=== PATIENT | female | born 1980 | race Caucasian/White ===

== ENCOUNTER 2019-12-29 13:50 | Outpatient (CLI) | payer OTHER | END 2019-12-29 23:59 | disposition home or self-care (01) | LOC: CFH 13:50 | PROVIDERS: ATTEND Obstetrics & Gynecology | DX: Z12.31 Encounter for screening mammogram for malignant neoplasm of breast (principal); N64.89 Other specified disorders of breast | CPT/HCPCS: 77067 ==